=== PATIENT | male | born 1935 | race Caucasian/White ===

== ENCOUNTER 2016-09-30 23:16 | Emergency (ER) | payer MEDICARE ==
[~2016-09-30] VITALS: Ht 180.3 cm; Wt 78.9 kg
[2016-09-30 23:43] LABS: BASOPHILS % (AUTO) 0.9 % (0.0-2.0); EOSINOPHILS # (AUTO) 0.2 K/uL (0.0-0.7); EOSINOPHILS % (AUTO) 3.4 % (0.0-7.0); HEMOGLOBIN 11.5 G/DL (14.0-18.0); LYMPHOCYTES # (AUTO) 1.4 K/UL (0.8-4.8); LYMPHOCYTES % (AUTO) 27.2 % (20.5-51.5); MEAN CORPUSCULAR HEMOGLOBIN 27.3 UUG (27.0-31.0); MEAN CORPUSCULAR HGB CONC 32 g/dL (32.0-37.0); MEAN CORPUSCULAR VOLUME 85.6 FL (82.0-92.0); MONOCYTES # (AUTO) 0.5 K/UL (0.1-1.30); MONOCYTES % (AUTO) 9.4 % (0.0-11.0); NEUTROPHILS # (AUTO) 3.1 K/UL (1.8-8.9); NEUTROPHILS % (AUTO) 59.1 % (38.5-71.5); PLATELET COUNT (AUTO) 232 K/UL (150-450); RED BLOOD CELL COUNT(AUTO) 4.21 MIL/UL (4.7-6.1); WHITE BLOOD COUNT (AUTO) 5.2 K/UL (4.0-11.2)
[2016-09-30] MEDS ORDERED: IV NORMAL SALINE 1000 ML BAG IV ONE (23:45)
[2016-09-30] MEDS ORDERED: ONDANSETRON 4 MG/2 ML VIAL IV ONE (23:45)
[2016-09-30 23:55] LABS: ALANINE AMINOTRANSFERASE 21 U/L (16-63); ALKALINE PHOSPHATASE 56 U/L (50-136); ASPARTATE AMINOTRANSFERASE 16 U/L (15-37); BILIRUBIN,DIRECT 0.1 mg/dL (0.0-0.2); BILIRUBIN,TOTAL 0.3 mg/dL (0.2-1.0); CARBON DIOXIDE 23 mmol/L (21-32); CHLORIDE 102 mmol/L (98-107); CREATININE 1.2 mg/dL (0.6-1.3); GLUCOSE 127 mg/dL (74-106); POTASSIUM 3.3 mmol/L (3.5-5.1); UREA NITROGEN, BLOOD 14 mg/dL (7-18)
[2016-10-01] MEDS ORDERED: ONDANSETRON 4 MG/2 ML VIAL ONE (00:08)
--- NOTE | 2016-10-01 00:31 | NUR ---
Patient discharged to home in stable conditon. Written and verbal after care instructions given. Patient verbalizes understanding of instructions. Ambulated from ER with stable gait. Removed peripheral IV lines from patient. All belongings with patient.
[2016-10-01 00:34] VITALS: BP 115/74
--- NOTE | 2016-10-01 00:34 | NUR ---
Patient accompanied from ER by . patient will be driven home by in private vehicle.
[2016-10-01] MEDS ORDERED: CALC600T12 PO (01:14)
[2016-10-01] MEDS ORDERED: ALFU10TA10 PO (01:14)
[2016-10-01] MEDS ORDERED: CHOL400T PO (01:14)
[2016-10-01] MEDS ORDERED: PRED2.5T PO (01:14)
[2016-10-01] MEDS ORDERED: FINA5TAB11 PO (01:14)
[2016-10-01] MEDS ORDERED: ROSU20TA PO (01:14)
[2016-10-01] MEDS ORDERED: MYCO500T PO (01:14)
[2016-10-01] MEDS ORDERED: CITA20TA11 PO (01:14)
[2016-10-01] MEDS ORDERED: OLME20TA21 PO (01:14)
[2016-10-01] MEDS ORDERED: CLOP75TA33 PO (01:14)
[2016-10-01] MEDS ORDERED: TRIA1CAP6 PO (01:14)
== END 2016-10-01 00:35 | disposition home or self-care (01) ==
LOC: ER 23:19
DX: R55 Syncope and collapse (principal); Z79.899 Other long term (current) drug therapy; I10 Essential (primary) hypertension; Z86.73 Personal history of transient ischemic attack (TIA), and cerebral infarction without residual deficits; Z98.890 Other specified postprocedural states
CPT/HCPCS: 36415; 70030-TC; 85025; 93005; A4663; J2405; J7030